=== PATIENT | male | born 1950 | race Caucasian/White ===

== ENCOUNTER 2021-09-15 10:44 | Outpatient (CLI) | payer MEDICARE ==
[~2021-09-15 10:44] MED LIST: Iopamidol 370 76% 100 ML VIAL ONE
== END 2021-09-15 10:45 | disposition home or self-care (01) ==
LOC: NAV RAD 10:44
PROVIDERS: ATTEND Family Medicine
DX: R05.9 Cough, unspecified (principal); R06.2 Wheezing; R53.83 Other fatigue; R06.02 Shortness of breath; R09.81 Nasal congestion
CPT/HCPCS: 36415; 71046; 71260; 82565; Q9967